=== PATIENT | female | born 1955 | race Caucasian/White ===

== ENCOUNTER 2016-09-20 15:52 | Emergency (ER) | payer MEDICARE, MEDICAID ==
[2016-09-20] MEDS ORDERED: LIDOCAINE-MPF 1% 5 ML VIAL ONE (16:12)
[2016-09-20] MEDS ORDERED: DEXAMETHASONE 10 MG/ML VIAL PO STA (16:39)
[2016-09-20] MEDS ORDERED: DEXAMETHASONE 10 MG/ML VIAL ONE (16:44)
[2016-09-20] MEDS ORDERED: CHERRY SYRUP 10 ML UDC PO ONE (16:44)
== END 2016-09-20 16:55 | disposition home or self-care (01) ==
DX: S61.217A Laceration without foreign body of left little finger without damage to nail, initial encounter (principal); W45.8XXA Other foreign body or object entering through skin, initial encounter; Y93.G1 Activity, food preparation and clean up; I10 Essential (primary) hypertension; G89.29 Other chronic pain; M54.12 Radiculopathy, cervical region
CPT/HCPCS: 12001; 99283; A9270

== ENCOUNTER 2016-09-27 14:37 | Emergency (ER) | payer MEDICARE, MEDICAID ==
[2016-09-27] MEDS ORDERED: oxyCODONE 5 MG TABLET PO STA (15:13)
[2016-09-27] MEDS ORDERED: SULFAMETH/TRIMETH DS 800/160 MG TABLET PO STA (15:13)
[2016-09-27] MEDS ORDERED: CEPHALEXIN 250 MG CAPSULE PO STA (15:13)
[2016-09-27] MEDS ORDERED: SULFAMETH/TRIMETH DS 800/160 MG TABLET PO ONE (15:16)
[2016-09-27] MEDS ORDERED: oxyCODONE 5 MG TABLET ONE (15:16)
[2016-09-27] MEDS ORDERED: CEPHALEXIN 250 MG CAPSULE PO ONE (15:16)
== END 2016-09-27 18:05 | disposition home or self-care (01) ==
DX: L03.012 Cellulitis of left finger (principal); S61.217D Laceration without foreign body of left little finger without damage to nail, subsequent encounter; W20.8XXD Other cause of strike by thrown, projected or falling object, subsequent encounter; M79.645 Pain in left finger(s); I10 Essential (primary) hypertension; E78.00 Pure hypercholesterolemia, unspecified; G47.30 Sleep apnea, unspecified; K21.9 Gastro-esophageal reflux disease without esophagitis; M19.90 Unspecified osteoarthritis, unspecified site; M79.7 Fibromyalgia
CPT/HCPCS: 29130; 73130; 99283; A9270

== ENCOUNTER 2017-01-08 08:00 | Outpatient (CLI) | payer MEDICARE, MEDICAID | END 2017-01-08 08:01 | disposition home or self-care (01) | LOC: LAB.WCP 08:00 | PROVIDERS: ATTEND Family Medicine | DX: R51 Headache (principal) | CPT/HCPCS: 36415; 85651; 86140 ==

== ENCOUNTER 2017-02-27 12:12 | Outpatient (CLI) | payer MEDICARE, MEDICAID ==
--- NOTE | 2017-02-28 00:50 | XRAY Report ---
EXAM: RIGHT ELBOW RADIOGRAPHY EXAM DATE: 02/27/2017 01:07 PM. CLINICAL HISTORY: RECENT FALL. Right elbow pain medial and lateral COMPARISON: None. TECHNIQUE: 3 views. FINDINGS: Bones: Normal. No fractures or bone lesions. Joints: No effusion or subluxation. Moderate bone spur off the olecranon. There appears to be a small bone spur off the coronoid process. Bone spurs and bone spur fragments seen off the lateral epicondy le. Soft Tissues: Unremarkable IMPRESSION: No evidence for acute fracture. Bone spurs as above. [facility] Referring Provider Line: [phone] SITE ID: [id number]
--- NOTE | 2017-02-28 16:18 | XRAY Report ---
EXAM: CERVICAL SPINE RADIOGRAPHY EXAM DATE: 02/27/2017 01:07 p.m. CLINICAL HISTORY: Cervical radiculopathy, left, fall risk. COMPARISONS: 12/25/2009. TECHNIQUE: 3 views. FINDINGS: Alignment: No spondylolisthesis or scoliosis. Bones: The cervical vertebral bodies and posterior elements are well visualized from the skull base t hrough C7; T1 in the lateral view is not well seen due to the shoulder shadowing, which is unremarkab le in the AP view. No new fractures or bone lesions. Disks: Multilevel moderate degenerative disk disease in the C3 through C7 visualized, slightly worse rosario since last exam. Facets: No degenerative disease. Soft Tissues: No prevertebral soft tissue swelling. The visualized lung apices are clear. IMPRESSION: 1. No discrete new bony lesion or fracture. 2. Slight worsening multilevel moderate degenerative disk disease in the C3 through the C7. [facility] Referring Provider Line: [phone] SITE ID: [id number]
--- NOTE | 2017-02-28 16:18 | XRAY Report ---
EXAM: LUMBOSACRAL SPINE RADIOGRAPHY EXAM DATE: 02/27/2017 01:07 p.m. CLINICAL HISTORY: Chronic lower back pain and possible compression fracture. COMPARISONS: None. TECHNIQUE: 3 views. FINDINGS: Alignment: No spondylolisthesis or scoliosis. Bones: Five [id number] lumbar vertebral bodies are present. No fractures or bone lesions. Disks: Mild diminishment of the disk heights in the L3 through the S1. There is moderate degenerative disk disease in the T11-T12. Facets: No degenerative changes. Sacroiliac Joints: Unremarkable. Soft Tissues: Status post cholecystectomy is noted. The visualized bowel gas pattern is normal. IMPRESSION: Negative for compression fracture or spondylolisthesis; mild degenerative disk disease in the L3 thro ugh the S1 and moderate degenerative disk disease in the T11-T12. [facility] Referring Provider Line: [phone] SITE ID: [id number]
== END 2017-02-27 12:13 | disposition home or self-care (01) ==
LOC: LAB 12:12
PROVIDERS: ATTEND Family Medicine
DX: M50.31 Other cervical disc degeneration, high cervical region (principal); M51.36 Other intervertebral disc degeneration, lumbar region; M51.37 Other intervertebral disc degeneration, lumbosacral region; M25.721 Osteophyte, right elbow; G89.4 Chronic pain syndrome; Z91.81 History of falling; M51.34 Other intervertebral disc degeneration, thoracic region
CPT/HCPCS: 36415; 72040; 72100; 80306; 85651; 86140

== ENCOUNTER 2018-03-29 13:39 | Outpatient (CLI) | payer MEDICARE, MEDICAID ==
--- NOTE | 2018-03-30 10:41 | Mammography Report ---
Procedure Date: 03/29/2018 Accession Number: [id number] / [id number] Procedure: MGN - Screening Mammo Dig Bilat CPT Code: FULL RESULT: EXAM: Screening Mammo Dig Bilat DATE: 03/29/2018 1:59 PM CLINICAL HISTORY: Routine screening, history of benign left breast biopsy. TECHNIQUE: Bilateral CC and MLO views were obtained. COMPARISON: 02/20/2015, 12/19/2012, 10/26/2011 FINDINGS: There is extensive fatty replacement of the breast tissue. No significant interval change. No suspicious masses, clustered microcalcifications, or regions of architectural distortion are identified. IMPRESSION: Negative examination RECOMMENDATION: Routine annual screening unless otherwise clinically indicated. BIRADS CATEGORY 1: Negative STANDARD QUALIFYING STATEMENTS: 1. This examination was reviewed with the aid of Computer-Aided Detection (CAD). 2. A negative or benign imaging report should not delay biopsy if clinically suspicious findings are present. Consider surgical consultation if warrented. More than 5% of cancers are not identified by imaging. 3. Dense breasts may obscure an underlying neoplasm.
== END 2018-03-29 13:40 | disposition home or self-care (01) ==
LOC: DI.N 13:39
PROVIDERS: ATTEND Radiology Diagnostic Radiology
DX: Z12.31 Encounter for screening mammogram for malignant neoplasm of breast (principal)
CPT/HCPCS: 77067

== ENCOUNTER 2018-04-20 13:15 | Outpatient (CLI) | payer MEDICARE, MEDICAID ==
[2018-04-20 20:34] LABS: BASOPHILS # (AUTO) 0.1 10^3/uL (0.0-0.1); BASOPHILS % (AUTO) 0.8 %; EOSINOPHILS # (AUTO) 0.2 10^3/uL (0.0-0.7); EOSINOPHILS % (AUTO) 2.4 %; HGB - HEMOGLOBIN 13.5 g/dL (12.0-16.0); LYMPHOCYTES # (AUTO) 2.2 10^3/uL (1.5-3.5); LYMPHOCYTES % (AUTO) 31.2 %; MEAN CORPUSCULAR HEMOGLOBIN 27.4 pg (27.0-31.0); MEAN CORPUSCULAR HGB CONC 32.6 g/dL (32.0-36.0); MEAN PLATELET VOLUME 7.6 fL (7.9-10.8); MONOCYTES # (AUTO) 0.5 10^3/uL (0.0-1.0); MONOCYTES % (AUTO) 7.5 %; NEUTROPHILS # (AUTO) 4.2 10^3/uL (1.5-6.6); NEUTROPHILS % (AUTO) 58.1 %; PLT - PLATELET COUNT 369 10^3/uL (130-450); RED BLOOD COUNT 4.91 10^6/uL (4.20-5.40); RED CELL DISTRIBUTION WIDTH 16.5 % (12.0-15.0); WHITE BLOOD COUNT 7.2 x10^3/uL (4.8-10.8)
[2018-04-20 21:07] LABS: THYROID STIMULATING HORMONE 1.72 uIU/mL (0.34-5.60)
[2018-04-20 21:12] LABS: ALBUMIN 3.9 g/dL (3.2-5.5); ALBUMIN/GLOBULIN RATIO 1.2 (1.0-2.2); ALKALINE PHOSPHATASE 114 IU/L (42-121); ALT ALANINE AMINOTRANSFERASE 20 IU/L (10-60); AST ASPARTATE AMINOTRANSFERASE 23 IU/L (10-42); BILIRUBIN,TOTAL 0.3 mg/dL (0.2-1.0); BUN - BLOOD UREA NITROGEN 15 mg/dL (6-20); CARBON DIOXIDE - CO2 28 mmol/L (21-32); CHLORIDE 103 mmol/L (101-111); CHOL/HDL RATIO 4.1 (<4.4); CHOLESTEROL 227 mg/dL; CREATININE 1.1 mg/dL (0.4-1.0); GFR - MDRD 50 (>89); GLUCOSE 93 mg/dL (70-100); HDL CHOLESTEROL 55 mg/dL; LDL CHOLESTEROL,CALCULATED 138 mg/dL; LDL/HDL RATIO 2.5 (<4.4); SODIUM 138 mmol/L (135-145); TOTAL PROTEIN 7.1 g/dL (6.7-8.2); VLDL CHOLESTEROL 34 mg/dL
[2018-04-20 21:22] LABS: HEMOGLOBIN A1C 0.54 g/dL; HEMOGLOBIN A1C % 5.7 % (4.6-6.2)
== END 2018-04-20 13:16 | disposition home or self-care (01) ==
LOC: LAB.WCP 13:15
PROVIDERS: ATTEND Family Medicine
DX: I10 Essential (primary) hypertension (principal); E78.5 Hyperlipidemia, unspecified; E53.8 Deficiency of other specified B group vitamins; E66.9 Obesity, unspecified
CPT/HCPCS: 36415; 80053; 80061; 82607; 83036; 83721; 84443; 85025